=== PATIENT | male | born 1975 | race Caucasian/White ===

== ENCOUNTER 2019-03-26 07:43 | Day surgery (SDC) | payer BC ==
[2019-03-19 18:12] VITALS: BMI 30.4
[~2019-03-26 07:43] MED LIST: CLINDAMYCIN 600 MG in DEXTROSE 5% IN WATER 50 ML IVPB ONE; DEXAMETHASONE SOD PHOSPHATE 10 MG/ML 1 ML VIAL IV ONE; DEXAMETHASONE SOD PHOSPHATE 4 MG/ML 1 ML VIAL IV ONE; FAMOTIDINE 20 MG/2 ML VIAL IV ONE; LACTATED RINGERS 1,000 ML IV SCH; LIDOCAINE 1% 20 ML VIAL (10MG/ML) FOR IV START INTRADERMA PRN; ONDANSETRON 4 MG/2 ML VIAL IVP ONE
[2019-03-26] MEDS: OXYMETAZOLINE 0.05% NASL SPRAY 1 SPRAY BOTTLE NASAL ONE ×5 (08:20→08:40)
[2019-03-26] MEDS ORDERED: LIDOCAINE 1% INJ 10MG/ML (20 ML MDV) ONE (09:13)
[2019-03-26] MEDS ORDERED: MIDAZOLAM 2 MG/2 ML VIAL ONE (09:13)
[2019-03-26] MEDS ORDERED: fentaNYL (PF) 50 MCG/ML 2 ML AMP ONE (09:13)
[2019-03-26] MEDS ORDERED: SUCCINYLCHOLINE CHLORIDE 100 MG/5 ML SYR IV ONE (09:13)
[2019-03-26] MEDS ORDERED: PROPOFOL 10 MG/ML 20 ML VIAL IV ONE (09:13)
[2019-03-26] MEDS ORDERED: LIDOCAINE 1%-EPI 1:100,000 20 ML VIAL SUBMUCOSAL ONE (09:34)
[2019-03-26] MEDS ORDERED: BACITRACIN OINT 1 EACH PACKET TOPICAL ONE (09:51)
[2019-03-26] MEDS: HYDROmorphone 0.5 MG/0.5 ML SYRINGE IVP PRN ×4 (10:49→11:18)
[2019-03-26 10:57] VITALS: TEMP 98
--- NOTE | 2019-03-26 11:01 | P.OP ---
Date of Procedure: 03/26/19 Preoperative Diagnosis: Deviated nasal septum Inferior turbinate hypertrophy Adenoid hypertrophy Chronic sinusitis Postoperative Diagnosis: Same Procedure(s) Performed: Septoplasty Outfracture and submucous resection of the inferior turbinates Adenoidectomy Bilateral endoscopic sinus surgery including bile max antrostomy with sinuses, bilateral anterior posterior ethmoidectomy, bilateral jovany bullectomy Anesthesia: ALEJANDROA Surgeon: Marcellus Carreon Estimated Blood Loss (ml): 10 Pathology: other (Nasal septal bone and cartilage, sinus contents) Condition: stable Disposition: PACU Indications for Procedure: The 44-year-old white male who has had was with chronic nasal airway obstruction congestion and chronic sinusitis recurrent sinusitis with abnormal computed tomography scan showing evidence of chronic sinusitis Operative Findings: Nasal septum deviated to the right also a spur to the left posteriorly inferior turbinate hypertrophy bilaterally. Bilateral jovany bullosae cells, small polyps in the maxillary sinuses bilaterally mucosal thickening throughout the ethmoid air cells, adenoid hypertrophy Description of Procedure: The patient was brought in the operative suite and placed in a supine position. The patient prepped and draped in usual aseptic fashion. Orbits were in the operating field for monitoring to the case and computed tomography scan was on the computer screen for review throughout the case also. 1% lidocaine with 100,000 epinephrine was infused submucosally both sides nasal septum as well as lateral nasal real anterior tips the middle turbinates bilaterally. While this taking vasoconstrictive effect the inferior turbinates were infractured with [place] elevator partial submucous resection inferior turbinates was performed with Coblation device ablating a portion of the submucosal soft tissue and then outfractured with [place] elevator. A left hemitransfixion incision was made with the mucoperichondrial medial pressure flap on the left elevated. Bony cartilaginous junction was disarticulated and the mucosal periosteal flap on the right was elevated. Bony nasal septal deformities were removed Amber forceps. An inferior cartilaginous strip was removed leaving a full 1.5 cm caudal strut. This corrected the nasoseptal deformities and the hemitransfixion incision was closed with a running 4-0 chromic suture. Full 0 endoscopic examination is performed bilaterally. Being on the left the middle turbinate was medialized and the jovany bullectomy was performed with the microdebrider removing the lateral one half of the middle turbinate. Maxillary ostium was located with a ballpoint probe and infundibulotomy was performed followed by uncinectomy. The maxillary ostium was enlarged at the expense of the anterior posterior fontanelle taking care anteriorly not to injure the lacrimal bone. Maxillary sinus was explored and small polyps removed with giraffe forceps. Anterior and posterior ethmoidectomy was then performed from anterior posterior with the microdebrider and up-biting and straight [place] forceps. Once this was completed attention was turned to the right where the procedures were followed as they were on the left including medialization middle turbinate jovany bullectomy infundibulotomy uncinectomy maxillary antrostomy with removal of tissue from maxillary sinus anterior and posterior ethmoidectomy. Once this was completed standard nasal pore nasal dressing was placed the middle meatus under direct visualization and bilateral Robertson airway splints coated bacitracin ointment were placed in nasal cavities and sutured trans-septally. The McIvor mouth gag was then placed. Soft palate palpated and no submucous cleft was noted. Red [place] catheters placed through the right nasal cavity and pulled through the oropharynx for soft palate retraction. The nasopharynx was examined mirror exam and the adenoids were ablated with suction cautery as they were mildly to moderately enlarged. Good hemostasis was noted and the patient was suctioned in oral gastric fashion. The McIvor mouth gag and catheter removed. The patient was allowed to emerge from general anesthesia having tolerated procedure well was extubated in the operating suite and transferred to postop recovery area in satisfactory fashion.
[2019-03-26 12:12] VITALS: RESP 18
[2019-03-26 12:20] VITALS: PULSE 86
[2019-03-26] MEDS ORDERED: HYDROcodone/APAP 10-325MG 1 EACH TAB PO ONE (12:21)
[2019-03-26 12:27] VITALS: BP 159/83
== END 2019-03-26 13:09 | disposition home or self-care (01) ==
LOC: OR 07:43
PROVIDERS: ATTEND Otolaryngology
DX: J34.2 Deviated nasal septum (principal); J34.3 Hypertrophy of nasal turbinates; J32.8 Other chronic sinusitis; J35.2 Hypertrophy of adenoids; J34.89 Other specified disorders of nose and nasal sinuses; J33.8 Other polyp of sinus; R42 Dizziness and giddiness; Z79.1 Long term (current) use of non-steroidal anti-inflammatories (NSAID); Z79.891 Long term (current) use of opiate analgesic; Z79.2 Long term (current) use of antibiotics; Z79.52 Long term (current) use of systemic steroids; Z79.899 Other long term (current) drug therapy; Z88.1 Allergy status to other antibiotic agents; J30.1 Allergic rhinitis due to pollen
CPT/HCPCS: 30520; 30140; 42831; 31267; 31255; 31240; 88305; 88300; J2250; J1100; J2405; J2001; J3010; J0330; J2704; J1170

== ENCOUNTER → 2020-11-09 | Outpatient (CLI) | payer BC ==
--- NOTE | 2020-11-09 19:45 | CONS ---
CONSULTATION REASON FOR CONSULTATION: Sleep apnea. 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 The patient has loud snoring and witnessed apneas as noted by his , and his snoring gets worse upon drinking beer. In general he drinks around 20 beers on a weekly basis and he has noted worsening in his apneas and snoring while drinking. He wakes up excessively fatigued and tired. He goes to bed around 8 p.m., wakes up at 4:15 a.m. in the morning to an alarm. On weekends he sleeps between 10 p.m. and 6 a.m. in the morning. He wakes up a few times in the middle of night, probably twice to utilize the bathroom. His weight has been stable around 190 pounds over the past 10 years at least. No sleep paralysis. No hallucinations. No cataplexy. No history of any motor vehicle accident because of feeling drowsy or sleepy. He sleeps in different body positions and does not have any preference. He does not take any naps during the day. His [place] score is 6. PAST MEDICAL HISTORY: Osteoarthritis of the knees, cervical disc disease with chronic neck pain. PAST SURGICAL HISTORY: Past surgical history includes bilateral knee surgeries for meniscal tears, hemorrhoid surgery and sinus surgery. DRUG ALLERGIES: NOT KNOWN. OUTPATIENT MEDICATIONS: Naprosyn 500 mg twice a day and hydrocodone 5/325 one tablet every 4 to 6 hours on a p.r.n. basis. SOCIAL HISTORY: He chews tobacco. No history of alcoholism. No history of IV drugs. Drinks one cup of coffee in the morning. FAMILY HISTORY: Negative for sleep apnea. Father and mother are both healthy. REVIEW OF SYSTEMS: Fourteen-point review of systems was done. Positive findings are all mentioned in the history of present illness. No history of grinding of the teeth. No sleepwalking or sleeptalking. No anxiety. No depression. No claustrophobia. No head trauma. No restlessness in the lower extremities. No sleep paralysis. No hallucinations. PHYSICAL EXAMINATION: VITAL SIGNS: BP is 145/93, pulse 75, respiratory rate 16, temperature 97.7, saturation 97% on room air. [place] score is 6. Neck size is 17 inches. BMI 31.0. Weight is 204, height is 5 feet 8 inches. GENERAL APPEARANCE: Calm, comfortable. HEAD: Atraumatic, normocephalic. NECK: Supple. No JVD. No goiter or neck masses. Mallampati class IV. LUNGS: Clear to auscultation. HEART: Heart sounds are regular rate and rhythm. Normal S1, S2. No S3, S4. No murmurs. ABDOMEN: Soft, nontender. No organomegaly. EXTREMITIES: No edema. No cyanosis or clubbing. NEUROLOGIC: Awake and alert. There is no focal neurological deficit. IMPRESSION: 1. Chronic fatigue and hypersomnia with an [place] score of 6. High suspicion for obstructive sleep apnea, as the patient has loud snoring, witnessed apneas, and has a Mallampati class IV. His current body mass index is 31.0. 2. Chronic neck pain. 3. Chronic knee pain. 4. Chronic tobacco chewing. PLAN: 1. Proceed with a home sleep study to evaluate the patient for sleep apnea. 2. Reduce the beer drinking, especially late in the afternoon or early evening hours. 3. Encourage weight loss. 4. Sleep hygiene measures are in general acceptable in this patient. 5. Will report back the results of the home sleep study and decide if further treatment is needed regarding obstructive sleep apnea. There is a high likelihood that the patient may have an underlying sleep breathing disorder. Will continue to follow. MMODL / IJN: [id number] /
== END | disposition home or self-care (01) ==
LOC: SLEEP 15:41
PROVIDERS: ATTEND Internal Medicine Critical Care Medicine
DX: G47.33 Obstructive sleep apnea (adult) (pediatric) (principal); G89.29 Other chronic pain; M54.2 Cervicalgia; M25.569 Pain in unspecified knee; F17.203 Nicotine dependence unspecified, with withdrawal
CPT/HCPCS: 99211